=== PATIENT | female | born 1960 | race Caucasian/White ===

== ENCOUNTER → 2017-11-06 17:22 | Emergency (ER) | payer SELFPAY ==
[~2017-11-06 17:22] MED LIST: Cephalexin CAP* 500 MG PO ONE; Ibuprofen TAB* 600 MG PO ONE; ceFAZolin 1 GM VIAL(*) 2 GM in NS 0.9% 100 ML* 100 ML IVPB ONE; ceFAZolin 2 GM PREMIX in ORs 2 GM/50 ML BAG IVPB ONE
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
[2017-11-06 21:58] VITALS: BP 128/68
--- NOTE | 2017-11-07 07:55 | RAD ---
Indication: Right thumb injury 3 views of the right thumb demonstrates a comminuted fracture distal phalanx of the right thumb. Marked soft tissue swelling is noted. IMPRESSION: Comminuted fracture distal phalanx of the right thumb. R1
== END | disposition home or self-care (01) ==
LOC: ED 17:22
DX: S62.521A Displaced fracture of distal phalanx of right thumb, initial encounter for closed fracture (principal); V40.5XXA Car driver injured in collision with pedestrian or animal in traffic accident, initial encounter; Y92.413 State road as the place of occurrence of the external cause; E07.9 Disorder of thyroid, unspecified; E78.00 Pure hypercholesterolemia, unspecified; F17.210 Nicotine dependence, cigarettes, uncomplicated
CPT/HCPCS: 96374; 96375; 99283; A9270-GY; J0690